=== PATIENT | female | born 1960 | race Caucasian/White ===

== ENCOUNTER 2024-07-07 18:34 | Emergency (ER) | payer BC, MEDICAID ==
[2024-07-07 18:50] VITALS: BP 143/94; TEMP 98
--- NOTE | 2024-07-07 18:52 | ERPHSYRPT ---
- History of Present Illness Time Seen by Provider: 07/07/24 18:45 Historian: patient Exam Limitations: no limitations Patient Subjective Stated Complaint: chest pain Triage Nursing Assessment: Pt brought to the ER by her , hypertensive, rates chest pain as 8/10, hx of OR, pulses normal, skin n/w/d, no difficulty breathing, nausea, was unable to get out of the vehicle without assistance, has a pacemaker/defibrilator Physician History: This is an obese 63-year-old white female patient brought to the emergency department by private vehicle accompanied by her because of chest pain that is in the left anterior chest that radiates up into her left jaw and left arm. It is described as pressure "as if something is sitting on my chest". Patient recently was discharged from hospital setting secondary to being treated for pneumonia. Patient has had a myocardial infarction in the past. Patient has a pacemaker and defibrillator in place. Patient's ux engineer is Dr. Houser. Patient has never been evaluated in our emergency department. Patient has a history of seizure disorder, TIAs, migraine headache, hypertension and hypothyroidism Timing/Duration: today, hour(s) (1.5) Quality: pressure Location: other (Left side anterior chest) Chest Pain Radiation: neck (Left), arm (Left) Severity of Pain-Max: moderate Severity of Pain-Current: moderate Modifying Factors: Improves With: nothing Prior Chest Pain/Cardiac Workup: cardiac cath, echocardiography, heart attack Nitro Today/Relief: provided at home (Single nitro spray), no relief Aspirin Treatment Today: 81 mg x 4, provided at home Allergies/Adverse Reactions: Penicillins Allergy (Verified 07/07/24 18:50) Home Medications: Unobtainable 07/07/24 [History] Hx Influenza Vaccination/Date Given: Yes Hx Pneumococcal Vaccination/Date Given: Yes Travel Risk - International Travel Have you traveled outside of the country in past 3 weeks: No - Emerging Infectious Disease Are you exhibiting symptoms associated with any current EIDs: No - Review of Systems Constitutional: No Symptoms Eyes: No Symptoms Ears, Nose, & Throat: No Symptoms Respiratory: No Symptoms Cardiac: Chest Pain Abdominal/Gastrointestinal: No Symptoms Genitourinary Symptoms: No Symptoms Musculoskeletal: No Symptoms Skin: No Symptoms Neurological: No Symptoms Psychological: No Symptoms Endocrine: No Symptoms Hematologic/Lymphatic: No Symptoms Immunological/Allergic: No Symptoms All Other Systems: Reviewed and Negative - Past Medical History Pertinent Past Medical History: Yes Neurological History: Migraines, Seizures, TIA Cardiac History: Hypertension Respiratory History: COPD Endocrine Medical History: Hypothyroidism Musculoskeletal History: Fibromyalgia Female Reproductive Disorders: Breast Cancer - Past Surgical History Past Surgical History: Yes Cardiac: Internal Defibrillator, Pacemaker Female Surgical History: Hysterectomy, Section, Mastectomy, Lumpectomy - Social History Smoking Status: Former smoker Exposure to second hand smoke: No Drug Use: none - Social Determinants of Health Will the patient participate in the screening: Yes Do you worry about a steady place to live?: No Do you have any problems with any of the following?: No known problems In the past 12 months,have you had to go without utilities?: No Transportation Issues: No Has anyone in your support network made you feel unsafe?: No Have you or anyone in your house had to go without enough: No - Nursing Vital Signs Nursing Vital Signs: Initial Vital Signs Temperature 98.0 F 07/07/24 18:37 Pulse Rate 81 07/07/24 18:37 Respiratory Rate 22 07/07/24 18:37 Blood Pressure 143/94 07/07/24 18:37 O2 Sat by Pulse Oximetry 95 07/07/24 18:37 Pain Scale Pain Intensity 8 - Physical Exam SpO2: 95 - Course Nursing assessment & vital signs reviewed: Yes EKG Interpreted by Me: RATE (75), Sinus Rhythm, NORMAL AXIS, NORMAL INTERVALS, NORMAL QRS, NORMAL ST-T (No acute ischemia on today's twelve-lead EKG. QTc is 470) Ordered Tests: Active Orders 24 hr Category Date Time Status Head Mixer STAT Care 07/07/24 18:52 Active EKG-ER Only STAT Care 07/07/24 18:52 Active IV Insertion STAT Care 07/07/24 18:52 Active Pulse Oximetry (ED) STAT Care 07/07/24 18:52 Active CHEST 1 VIEW (PORTABLE) Stat Exams 07/07/24 18:52 Ordered CBC W DIFF Stat Lab 07/07/24 18:52 Ordered CMP Stat Lab 07/07/24 18:52 Ordered MAGNESIUM Stat Lab 07/07/24 18:52 Ordered PROTIME WITH INR Stat Lab 07/07/24 18:52 Ordered TROPONIN Q4H Lab 07/07/24 19:00 Ordered TROPONIN Q4H Lab 07/07/24 23:00 Ordered TROPONIN Q4H Lab 07/08/24 03:00 Ordered Medication Summary Discontinued Medications Generic Name Dose Route Start Last Admin Trade Name Walt PRN Reason Stop Dose Admin Aspirin 324 mg 07/07/24 18:52 07/07/24 19:00 Aspirin 81 Mg Tab.Chew PO 07/07/24 18:53 Not Given STAT ONE - Progress Progress: improved, re-examined Air Movement: good Progress Note: 07/07/24 18:59 My medical decision making and the assignment of moderate complexity to this patient's medical issue today is based on review of the patient's past medical history, review of the patient's medication list, reviewed patient drug allergy list, history present illness and physical findings on examination. The workup in this patient includes placement of intravenous line, CBC, CMP, BNP, PT/INR, troponin level, twelve-lead EKG, chest x-ray, magnesium level. Differential diagnosis includes but is not limited to electrolyte abnormalities, arrhythmia, persistent pneumonia, myocardial infarction 07/07/24 19:30 This patient suddenly wants to leave AGAINST MEDICAL ADVICE. She was advised against it as her condition warrants full workup. She is awake she is alert she is oriented and is aware that her condition may be emergent and may lead to if she leaves without a full workup. She understands and desires to leave AGAINST MEDICAL ADVICE. She will sign AGAINST MEDICAL ADVICE form. - Departure Departure Disposition: AMA Clinical Impression: Chest pain Condition: Stable Critical Care Time: No
[2024-07-07] MEDS: BABY ASPIRIN 81 MG CHEW PO ONE (19:00)
[2024-07-07 19:04] VITALS: PULSE 75; RESP 16
[2024-07-07 19:33] VITALS: O2SAT 95
== END 2024-07-07 19:50 | disposition left against medical advice (07) ==
LOC: ED 18:34
DX: R07.9 Chest pain, unspecified (principal); I10 Essential (primary) hypertension
CPT/HCPCS: 93005; 93041; 94760; 99284